=== PATIENT | female | born 1990 | race African-American/Black ===

== ENCOUNTER 2023-10-19 09:59 | Emergency (ER) | payer MEDICAID, OTHER ==
[~2023-10-19] VITALS: Ht 160 cm; Wt 54.0 kg
[2023-10-19 10:08] VITALS: O2SAT 100
[2023-10-19] MEDS: ACETAMINOPHEN 325MG TABLET PO ONE (11:23)
[2023-10-19] MEDS: IBUPROFEN 800MG TABLET PO ONE (11:26)
[2023-10-19] MEDS ORDERED: NAPR-681 MT (12:09)
[2023-10-19 12:22] VITALS: BP 124/67; PULSE 69; RESP 18; TEMP 98.1
== END 2023-10-19 12:22 | disposition home or self-care (01) ==
LOC: ER 09:59
DX: M25.511 Pain in right shoulder (principal); Z88.5 Allergy status to narcotic agent; Z98.890 Other specified postprocedural states
CPT/HCPCS: 73030; 81025; 99283